=== PATIENT | male | born 1935 | race Caucasian/White ===

== ENCOUNTER 2017-04-09 07:00 | Day surgery (SDC) | payer MEDICARE, OTHER ==
[~2017-04-09 07:00] MED LIST: Lactated Ringers 1,000 ML IV SCH
[2017-04-09] MEDS ORDERED: Propofol 200 MG/20 ML SDV ONE (07:41)
[2017-04-09] MEDS ORDERED: fentaNYL 100 MCG/2 ML SDV ONE (07:41)
[2017-04-09 09:51] VITALS: BP 154/91
--- NOTE | 2017-04-09 13:28 | OR ---
PREOPERATIVE DIAGNOSIS: Screening colonoscopy. POSTOPERATIVE DIAGNOSIS: Multiple colonic polyps, sigmoid diverticulosis. PROCEDURE PROPOSED: Total flexible colonoscopy. PROCEDURE DONE: Total flexible colonoscopy with polypectomy x6. INDICATION: This is an 81-year-old gentleman, who was recommended to proceed with a screening colonoscopy. He was found to have positive FIT test about 2 years ago, and he has never had a colonoscopy before. He denies any family history of colon cancer. TECHNIQUE: The patient brought to the endoscopy suite, placed in left lateral decubitus position. He was sedated with propofol per [employer]. The flexible video colonoscope was then passed transanally and under visualization, advanced to the cecum. He was found to have multiple polyps. He had 1 in the cecum. He had 3 in the hepatic flexure area, most of them were removed by hot snare technique and 2 of them were removed with cold biopsy forceps. He then had another polyp in the descending colon, and another 1 at 40 cm in the sigmoid colon. He also had moderate sigmoid diverticulosis and the rectum was normal. The polyps were retrieved and submitted for pathologic examination. He tolerated the entire procedure well. IMPRESSION: 1. Multiple colonic polyps x6, removed. 2. Sigmoid diverticulosis. PLAN: He will be sent a letter with pathology report. I felt at his age that he likely does not need to have another colonoscopy. SCM: 04/09/2017 08:55:10 MODL: 04/09/2017 13:22:13 /[id number]
--- NOTE | 2017-07-16 11:55 | LETTER ---
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 There were no worrisome changes with any of these polyps, but due to the multitude of polyps, one could entertain the fact that you should consider having a repeat examination again in 3 years' time. This will be dependent on your health as to whether you want to proceed with that, but you likely will be sent a reminder at that time. Respectfully,
== END 2017-04-09 10:20 | disposition home or self-care (01) ==
LOC: VM.SDS 07:00
PROVIDERS: ATTEND Surgery
DX: Z12.11 Encounter for screening for malignant neoplasm of colon (principal); D12.0 Benign neoplasm of cecum; D12.3 Benign neoplasm of transverse colon; D12.6 Benign neoplasm of colon, unspecified; K57.30 Diverticulosis of large intestine without perforation or abscess without bleeding; Z79.899 Other long term (current) drug therapy; I10 Essential (primary) hypertension; N40.0 Benign prostatic hyperplasia without lower urinary tract symptoms; Z98.890 Other specified postprocedural states; Z87.891 Personal history of nicotine dependence
CPT/HCPCS: 00810; 45380; J2704; J3010; J7120; 88305

== ENCOUNTER 2023-12-02 19:32 | Inpatient (IN) | payer MEDICARE, OTHER ==
[2023-12-02] MEDS ORDERED: Acetaminophen 500 MG Tab PO ONE (19:57)
[2023-12-02 20:07] LABS: BASOPHILS PERCENT AUTO 0.1 % (0.2-1.2); HEMATOCRIT 41.7 % (40.0-52.0); HEMOGLOBIN 13.8 g/dL (14.0-18.0); IMMATURE GRAN ABSOLUTE AUTO 0.03 x10^3/uL (0.00-0.07); LYMPHOCYTES ABSOLUTE AUTO 1.3 x10^3/uL (1.0-4.8); LYMPHOCYTES PERCENT AUTO 7.2 % (25.0-50.0); MEAN CORPUSCULAR HEMOGLOBIN 30.1 pg (26.0-32.0); MEAN CORPUSCULAR HGB CONC 33.1 g/dL (32.0-36.0); MONOCYTES ABSOLUTE AUTO 0.8 x10^3/uL (0.0-0.8); MONOCYTES PERCENT AUTO 4.5 % (2.0-11.0); NEUTROPHILS ABSOLUTE AUTO 15.4 x10^3/uL (1.8-7.7); PLATELET COUNT,PLT 204 x10^3/uL (130-400); RED BLOOD CELL COUNT 4.58 x10^6/uL (4.5-6.0)
[2023-12-02] MEDS ORDERED: cefTRIAXone 1 GM Vial IVPUSH ONE (20:14)
[2023-12-02 20:43] LABS: INR 1.2 (0.9-1.1); PROTHROMBIN TIME 12.6 SEC (9.5-12.2); PTT,PARTIAL THROMBOPLSTIN TIME 29.6 SEC (23.6-33.6)
[2023-12-02 20:44] LABS: WHITE BLOOD CELL COUNT,WBC 17.5 x10^3/uL (4.0-10.0)
[2023-12-02 20:48] LABS: LACTIC ACID 2.6 mmol/L (0.4-2.0)
[2023-12-02 20:49] LABS: CORONAVIRUS COVID-19 NAA NEGATIVE (NEGATIVE); INFLUENZA A NAA NEGATIVE (NEGATIVE); INFLUENZA B NAA NEGATIVE (NEGATIVE); RESPIRATORY SYNCYTIAL VIR NAA NEGATIVE (NEGATIVE)
[2023-12-02] MEDS ORDERED: Sodium Chloride 0.9% 1,000 ML IV ONE (20:50)
[2023-12-02 20:52] LABS: A/G RATIO 0.72; ALANINE AMINOTRANSFERASE,ALT 20 U/L (16-63); ALBUMIN 3.1 g/dL (3.4-5.0); ALKALINE PHOSPHATASE 89 U/L (46-116); ASPARTATE AMNIOTRANSFERASE,AST 30 U/L (15-37); BLOOD UREA NITROGEN,BUN 34 mg/dL (7-18); C-REACTIVE PROTEIN 12.08 mg/dL (<=0.50); CALCIUM 8.9 mg/dL (8.5-10.1); CARBON DIOXIDE,CO2 25 mmol/L (21-32); CHLORIDE,CL 101 mmol/L (98-107); CREATININE 1.9 mg/dL (0.70-1.30); GLUCOSE RANDOM 131 mg/dL (70-99); POTASSIUM,K 3.7 mmol/L (3.5-5.1); PRO B-TYPE NATRIUR PEPT,BNPPRO 14090 pg/mL (<=450); PROTEIN TOTAL,TP 7.4 g/dL (6.4-8.2); SODIUM,NA 140 mmol/L (136-145)
[2023-12-02 20:54] LABS: APPEARANCE,URINE CLOUDY (CLEAR); BILIRUBIN,URINE NEGATIVE (NEGATIVE); COLOR,URINE YELLOW (YELLOW); GLUCOSE,URINE NEGATIVE (NEGATIVE); KETONES,URINE NEGATIVE (NEGATIVE); LEUKOCYTE ESTERASE,URINE LARGE (NEGATIVE); NITRITE,URINE POSITIVE (NEGATIVE); OCCULT BLOOD,URINE MODERATE (NEGATIVE); PH,URINE 6.5 (5.0-8.0); PROTEIN,URINE 100 mg/dL (NEGATIVE)
[2023-12-02 20:56] LABS: ANION GAP 17.7 mmol/L (5-15); ESTIMATED GFR 34 mL/min (>=60)
[2023-12-02 21:02] LABS: BACTERIA,URINE MANY /HPF (NOT SEEN); MUCUS,URINE NOT SEEN /LPF (NOT SEEN); SQUAMOUS EPITHELIAL CELLS,UR NOT SEEN /HPF (NOT SEEN); WBC,URINE >100 /HPF (NOT SEEN)
[2023-12-02] MEDS ORDERED: Iopamidol 755 Mg/ML 100 ML Bottle IVPUSH ONE (22:25)
[2023-12-02] MEDS: Sodium Chloride 0.9% 1,000 ML IV SCH (23:50)
[2023-12-03] MEDS ORDERED: Acetaminophen 325 MG Tab PO PRN (03:00)
[2023-12-03 06:53] LABS: BASOPHILS PERCENT AUTO 0.2 % (0.2-1.2); EOSINOPHILS PERCENT AUTO 0.1 % (0.0-4.0); HEMATOCRIT 41.2 % (40.0-52.0); HEMOGLOBIN 13.2 g/dL (14.0-18.0); IMMATURE GRAN ABSOLUTE AUTO 0.02 x10^3/uL (0.00-0.07); LYMPHOCYTES PERCENT AUTO 8.9 % (25.0-50.0); MEAN CORPUSCULAR VOLUME 93.6 fL (78.0-93.0); MONOCYTES ABSOLUTE AUTO 0.4 x10^3/uL (0.0-0.8); MONOCYTES PERCENT AUTO 3.8 % (2.0-11.0); NEUTROPHILS ABSOLUTE AUTO 9.8 x10^3/uL (1.8-7.7); NEUTROPHILS PERCENT AUTO 86.8 % (50.0-80.0); PLATELET COUNT,PLT 167 x10^3/uL (130-400); WHITE BLOOD CELL COUNT,WBC 11.3 x10^3/uL (4.0-10.0)
[2023-12-03 07:14] LABS: A/G RATIO 0.66; ALBUMIN 2.5 g/dL (3.4-5.0); CALCIUM 8.5 mg/dL (8.5-10.1); CREATININE 1.6 mg/dL (0.70-1.30); EST CRCL DRUG DOSING (CG) 27.76 mL/min; POTASSIUM,K 3.4 mmol/L (3.5-5.1); PROTEIN TOTAL,TP 6.3 g/dL (6.4-8.2)
[2023-12-03 07:15] LABS: ANION GAP 13.4 mmol/L (5-15)
[2023-12-03] MEDS ORDERED: Ondansetron 4 MG Tab.DIS PO PRN (08:05)
[2023-12-03] MEDS: Metoprolol Succinate 50 MG Tab.ER PO SCH (08:44)
[2023-12-03] MEDS: Lisinopril 5 MG Tab PO SCH (08:45)
[2023-12-03] MEDS: Aspirin 81 MG Tab.EC PO SCH (08:45)
[2023-12-03] MEDS: Dorzolamide/Timolol 2%-0.5% Ophth Soln 10 ML Bottle EYEBOTH SCH ×2 (08:46→20:15)
[2023-12-03] MEDS: Furosemide 80 MG Tab PO SCH (08:46)
[2023-12-03] MEDS: Sodium Chloride 0.9% 1,000 ML IV SCH ×2 (09:51→21:55)
[2023-12-03] MEDS ORDERED: Non-Formulary Medication 1 Each (Ergocalciferol (Vitamin D2) [Vitamin D2] 50 MCG Capsule) PO SCH (10:00)
[2023-12-03] MEDS ORDERED: Enoxaparin 40 MG/0.4 ML Syringe SUBCUT SCH (11:30)
[2023-12-03] MEDS: Enoxaparin 40 MG/0.4 ML Syringe SUBCUT SCH ×2 (11:57→19:14)
[2023-12-03] MEDS ORDERED: Potassium Chloride 20 MEQ Tab.ER PO ONE (13:11)
[2023-12-03] MEDS ORDERED: VANCOmycin 2 GM/400 ML 400 ML IV ONE (16:45)
[2023-12-03] MEDS ORDERED: cefTRIAXone 1 GM Vial IVPUSH SCH (20:00)
[2023-12-03] MEDS: Enoxaparin 30 MG/0.3 ML Syringe SUBCUT SCH (20:15)
[2023-12-03] MEDS: Latanoprost 0.005% Ophth Soln 2.5 ML Bottle EYEBOTH SCH (20:19)
[2023-12-04 06:56] LABS: BASOPHILS PERCENT AUTO 0.1 % (0.2-1.2); EOSINOPHILS ABSOLUTE AUTO 0.2 x10^3/uL (0.0-0.5); EOSINOPHILS PERCENT AUTO 2.3 % (0.0-4.0); HEMATOCRIT 40.4 % (40.0-52.0); HEMOGLOBIN 12.9 g/dL (14.0-18.0); IMMATURE GRAN ABSOLUTE AUTO 0.01 x10^3/uL (0.00-0.07); LYMPHOCYTES ABSOLUTE AUTO 1.2 x10^3/uL (1.0-4.8); LYMPHOCYTES PERCENT AUTO 16.9 % (25.0-50.0); MEAN CORPUSCULAR HEMOGLOBIN 29.6 pg (26.0-32.0); MEAN CORPUSCULAR HGB CONC 31.9 g/dL (32.0-36.0); MEAN CORPUSCULAR VOLUME 92.7 fL (78.0-93.0); MONOCYTES ABSOLUTE AUTO 0.6 x10^3/uL (0.0-0.8); MONOCYTES PERCENT AUTO 8.7 % (2.0-11.0); NEUTROPHILS ABSOLUTE AUTO 5.3 x10^3/uL (1.8-7.7); NEUTROPHILS PERCENT AUTO 71.9 % (50.0-80.0); PLATELET COUNT,PLT 180 x10^3/uL (130-400); RED BLOOD CELL COUNT 4.36 x10^6/uL (4.5-6.0); WHITE BLOOD CELL COUNT,WBC 7.4 x10^3/uL (4.0-10.0)
[2023-12-04 07:17] LABS: A/G RATIO 0.63; ALBUMIN 2.4 g/dL (3.4-5.0); BILIRUBIN TOTAL 0.9 mg/dL (0.2-1.0); CALCIUM 8.2 mg/dL (8.5-10.1); CREATININE 1.4 mg/dL (0.70-1.30); EST CRCL DRUG DOSING (CG) 31.73 mL/min; POTASSIUM,K 3.6 mmol/L (3.5-5.1); PROTEIN TOTAL,TP 6.2 g/dL (6.4-8.2)
[2023-12-04 07:20] LABS: ANION GAP 15.6 mmol/L (5-15)
[2023-12-04] MEDS: Sodium Chloride 0.9% 1,000 ML IV SCH (07:33)
[2023-12-04] MEDS: Aspirin 81 MG Tab.EC PO SCH (09:01)
[2023-12-04] MEDS: Lisinopril 5 MG Tab PO SCH (09:03)
[2023-12-04] MEDS: Furosemide 80 MG Tab PO SCH (09:05)
[2023-12-04] MEDS: Metoprolol Succinate 50 MG Tab.ER PO SCH (09:05)
[2023-12-04] MEDS: Dorzolamide/Timolol 2%-0.5% Ophth Soln 10 ML Bottle EYEBOTH SCH ×2 (09:08→21:30)
[2023-12-04] MEDS: Enoxaparin 30 MG/0.3 ML Syringe SUBCUT SCH (21:28)
[2023-12-04] MEDS: Latanoprost 0.005% Ophth Soln 2.5 ML Bottle EYEBOTH SCH (21:29)
[2023-12-05 07:02] LABS: BASOPHILS PERCENT AUTO 0.2 % (0.2-1.2); EOSINOPHILS ABSOLUTE AUTO 0.4 x10^3/uL (0.0-0.5); EOSINOPHILS PERCENT AUTO 7.3 % (0.0-4.0); HEMATOCRIT 39.7 % (40.0-52.0); HEMOGLOBIN 12.8 g/dL (14.0-18.0); IMMATURE GRAN ABSOLUTE AUTO 0.02 x10^3/uL (0.00-0.07); LYMPHOCYTES ABSOLUTE AUTO 1.2 x10^3/uL (1.0-4.8); LYMPHOCYTES PERCENT AUTO 23.6 % (25.0-50.0); MEAN CORPUSCULAR HEMOGLOBIN 29.6 pg (26.0-32.0); MEAN CORPUSCULAR HGB CONC 32.2 g/dL (32.0-36.0); MEAN CORPUSCULAR VOLUME 91.9 fL (78.0-93.0); MONOCYTES ABSOLUTE AUTO 0.5 x10^3/uL (0.0-0.8); NEUTROPHILS PERCENT AUTO 58.5 % (50.0-80.0); PLATELET COUNT,PLT 161 x10^3/uL (130-400); RED BLOOD CELL COUNT 4.32 x10^6/uL (4.5-6.0); WHITE BLOOD CELL COUNT,WBC 5.1 x10^3/uL (4.0-10.0)
[2023-12-05 07:22] LABS: A/G RATIO 0.61; ALBUMIN 2.3 g/dL (3.4-5.0); BILIRUBIN TOTAL 0.6 mg/dL (0.2-1.0); CALCIUM 8.6 mg/dL (8.5-10.1); CREATININE 1.4 mg/dL (0.70-1.30); EST CRCL DRUG DOSING (CG) 31.73 mL/min; PROTEIN TOTAL,TP 6.1 g/dL (6.4-8.2)
[2023-12-05] MEDS: Metoprolol Succinate 50 MG Tab.ER PO SCH (08:54)
[2023-12-05] MEDS: Lisinopril 5 MG Tab PO SCH (08:54)
[2023-12-05] MEDS: Aspirin 81 MG Tab.EC PO SCH (08:54)
[2023-12-05] MEDS: Furosemide 80 MG Tab PO SCH (08:54)
[2023-12-05] MEDS: Dorzolamide/Timolol 2%-0.5% Ophth Soln 10 ML Bottle EYEBOTH SCH ×2 (08:56→20:22)
[2023-12-05] MEDS: ceFAZolin 2 GM Vial IVPUSH SCH (16:50)
[2023-12-05] MEDS: Latanoprost 0.005% Ophth Soln 2.5 ML Bottle EYEBOTH SCH (20:17)
[2023-12-05] MEDS: Enoxaparin 30 MG/0.3 ML Syringe SUBCUT SCH (20:18)
[2023-12-05] MEDS: Sodium Chloride 0.9% 10 ML Syringe FLUSH PRN (20:22)
[2023-12-06] MEDS: ceFAZolin 2 GM Vial IVPUSH SCH ×3 (00:20→16:28)
[2023-12-06] MEDS: Sodium Chloride 0.9% 10 ML Syringe FLUSH PRN ×2 (00:25→08:39)
[2023-12-06 07:16] LABS: BASOPHILS PERCENT AUTO 0.2 % (0.2-1.2); EOSINOPHILS ABSOLUTE AUTO 0.4 x10^3/uL (0.0-0.5); EOSINOPHILS PERCENT AUTO 7.8 % (0.0-4.0); HEMOGLOBIN 12.4 g/dL (14.0-18.0); IMMATURE GRAN ABSOLUTE AUTO 0.02 x10^3/uL (0.00-0.07); LYMPHOCYTES ABSOLUTE AUTO 1.2 x10^3/uL (1.0-4.8); MEAN CORPUSCULAR HEMOGLOBIN 29.8 pg (26.0-32.0); MEAN CORPUSCULAR HGB CONC 32.6 g/dL (32.0-36.0); MEAN CORPUSCULAR VOLUME 91.3 fL (78.0-93.0); MONOCYTES ABSOLUTE AUTO 0.5 x10^3/uL (0.0-0.8); MONOCYTES PERCENT AUTO 10.6 % (2.0-11.0); NEUTROPHILS ABSOLUTE AUTO 2.6 x10^3/uL (1.8-7.7); PLATELET COUNT,PLT 194 x10^3/uL (130-400); RED BLOOD CELL COUNT 4.16 x10^6/uL (4.5-6.0); WHITE BLOOD CELL COUNT,WBC 4.7 x10^3/uL (4.0-10.0)
[2023-12-06 07:51] LABS: A/G RATIO 0.67; ALBUMIN 2.4 g/dL (3.4-5.0); BILIRUBIN TOTAL 0.6 mg/dL (0.2-1.0); CALCIUM 8.7 mg/dL (8.5-10.1); CREATININE 1.3 mg/dL (0.70-1.30); EST CRCL DRUG DOSING (CG) 34.17 mL/min; POTASSIUM,K 3.6 mmol/L (3.5-5.1)
[2023-12-06 07:52] LABS: ANION GAP 13.6 mmol/L (5-15)
[2023-12-06] MEDS: Aspirin 81 MG Tab.EC PO SCH (08:32)
[2023-12-06] MEDS: Furosemide 80 MG Tab PO SCH (08:32)
[2023-12-06] MEDS: Lisinopril 5 MG Tab PO SCH (08:32)
[2023-12-06] MEDS: Metoprolol Succinate 50 MG Tab.ER PO SCH (08:33)
[2023-12-06] MEDS: Dorzolamide/Timolol 2%-0.5% Ophth Soln 10 ML Bottle EYEBOTH SCH (08:35)
[2023-12-06 16:38] VITALS: BP 161/77; PULSE 61
== END 2023-12-06 17:08 | disposition swing bed (61) | DRG 871 ==
LOC: VM.ED 19:32 → VM.MS 22:27
PROVIDERS: ADMIT Physician Assistant; ATTEND Physician Assistant
DX: A40.1 Sepsis due to streptococcus, group B (principal); N39.0 Urinary tract infection, site not specified; I10 Essential (primary) hypertension; I21.4 Non-ST elevation (NSTEMI) myocardial infarction; Z20.822 Contact with and (suspected) exposure to COVID-19; I50.33 Acute on chronic diastolic (congestive) heart failure; L03.116 Cellulitis of left lower limb; I13.0 Hypertensive heart and chronic kidney disease with heart failure and stage 1 through stage 4 chronic kidney disease, or unspecified chronic kidney disease; N18.4 Chronic kidney disease, stage 4 (severe); N30.00 Acute cystitis without hematuria; E87.20 Acidosis, unspecified; Z66 Do not resuscitate; E87.6 Hypokalemia; I27.20 Pulmonary hypertension, unspecified; R65.20 Severe sepsis without septic shock; G47.33 Obstructive sleep apnea (adult) (pediatric); N40.0 Benign prostatic hyperplasia without lower urinary tract symptoms; I87.2 Venous insufficiency (chronic) (peripheral); D64.9 Anemia, unspecified; H91.90 Unspecified hearing loss, unspecified ear; E66.9 Obesity, unspecified; I87.8 Other specified disorders of veins; B95.61 Methicillin susceptible Staphylococcus aureus infection as the cause of diseases classified elsewhere; Z79.82 Long term (current) use of aspirin; Z79.899 Other long term (current) drug therapy; Z98.49 Cataract extraction status, unspecified eye; Z98.890 Other specified postprocedural states; Z87.891 Personal history of nicotine dependence; Z11.52 Encounter for screening for COVID-19
CPT/HCPCS: 0241U; 36415; 71045; 71275; 80053; 80202; 81001; 83605; 83735; 83880; 84484; 85025; 85379; 85610; 85730; 86060; 86140; 87040; 87077; 87086; 87088; 87186; 93005; 93010; 94760; 96361; 96374; 97110; 97116; 97162; 97166; 97168; 97535; 99284; 99285; A9270-GY; J0690; J0696; J1650; J3370; J3490; J7030; J7050; Q9967

== ENCOUNTER 2023-12-06 09:12 | Inpatient (IN) | payer MEDICARE, OTHER ==
[2023-12-06] MEDS ORDERED: Ondansetron 4 MG Tab.DIS PO PRN (17:02)
[2023-12-06] MEDS ORDERED: Acetaminophen 325 MG Tab PO PRN (17:02)
[2023-12-06] MEDS: Enoxaparin 30 MG/0.3 ML Syringe SUBCUT SCH (20:45)
[2023-12-06] MEDS: Dorzolamide/Timolol 2%-0.5% Ophth Soln 10 ML Bottle EYEBOTH SCH (20:47)
[2023-12-06] MEDS: Latanoprost 0.005% Ophth Soln 2.5 ML Bottle EYEBOTH SCH (20:48)
[2023-12-06] MEDS: ceFAZolin 2 GM Vial IVPUSH SCH (23:54)
[2023-12-07] MEDS: Sodium Chloride 0.9% 10 ML Syringe FLUSH PRN ×3 (00:04→23:35)
[2023-12-07] MEDS: Aspirin 81 MG Tab.EC PO SCH (08:37)
[2023-12-07] MEDS: Furosemide 80 MG Tab PO SCH (08:38)
[2023-12-07] MEDS: Metoprolol Succinate 50 MG Tab.ER PO SCH (08:38)
[2023-12-07] MEDS: Lisinopril 5 MG Tab PO SCH (08:38)
[2023-12-07] MEDS: Dorzolamide/Timolol 2%-0.5% Ophth Soln 10 ML Bottle EYEBOTH SCH ×2 (08:40→21:01)
[2023-12-07] MEDS: ceFAZolin 2 GM Vial IVPUSH SCH ×3 (08:40→23:28)
[2023-12-07] MEDS ORDERED: FLU (Fluad Quad) 2023-24(65UP)/MF59C/PF 60 MCG/0.5 ML Syringe IM ONE (09:00)
[2023-12-07] MEDS: Enoxaparin 30 MG/0.3 ML Syringe SUBCUT SCH (20:58)
[2023-12-07] MEDS: Latanoprost 0.005% Ophth Soln 2.5 ML Bottle EYEBOTH SCH (21:00)
[2023-12-08] MEDS: Lisinopril 5 MG Tab PO SCH (08:40)
[2023-12-08] MEDS: Furosemide 80 MG Tab PO SCH (08:40)
[2023-12-08] MEDS: Aspirin 81 MG Tab.EC PO SCH (08:40)
[2023-12-08] MEDS: Metoprolol Succinate 50 MG Tab.ER PO SCH (08:40)
[2023-12-08] MEDS: Dorzolamide/Timolol 2%-0.5% Ophth Soln 10 ML Bottle EYEBOTH SCH ×2 (08:41→20:50)
[2023-12-08] MEDS: ceFAZolin 2 GM Vial IVPUSH SCH ×2 (08:41→15:49)
[2023-12-08] MEDS: Sodium Chloride 0.9% 10 ML Syringe FLUSH PRN (15:50)
[2023-12-08] MEDS: Enoxaparin 30 MG/0.3 ML Syringe SUBCUT SCH (20:51)
[2023-12-08] MEDS: Latanoprost 0.005% Ophth Soln 2.5 ML Bottle EYEBOTH SCH (20:53)
[2023-12-09] MEDS: ceFAZolin 2 GM Vial IVPUSH SCH ×3 (00:10→16:43)
[2023-12-09] MEDS: Sodium Chloride 0.9% 10 ML Syringe FLUSH PRN (00:18)
[2023-12-09 07:10] LABS: BASOPHILS PERCENT AUTO 0.6 % (0.2-1.2); EOSINOPHILS ABSOLUTE AUTO 0.4 x10^3/uL (0.0-0.5); EOSINOPHILS PERCENT AUTO 6.4 % (0.0-4.0); HEMATOCRIT 38.9 % (40.0-52.0); HEMOGLOBIN 12.7 g/dL (14.0-18.0); IMMATURE GRAN ABSOLUTE AUTO 0.09 x10^3/uL (0.00-0.07); LYMPHOCYTES ABSOLUTE AUTO 1.8 x10^3/uL (1.0-4.8); LYMPHOCYTES PERCENT AUTO 26.8 % (25.0-50.0); MEAN CORPUSCULAR HEMOGLOBIN 30.7 pg (26.0-32.0); MEAN CORPUSCULAR HGB CONC 32.6 g/dL (32.0-36.0); MONOCYTES ABSOLUTE AUTO 0.6 x10^3/uL (0.0-0.8); MONOCYTES PERCENT AUTO 8.6 % (2.0-11.0); NEUTROPHILS ABSOLUTE AUTO 3.7 x10^3/uL (1.8-7.7); NEUTROPHILS PERCENT AUTO 56.2 % (50.0-80.0); PLATELET COUNT,PLT 206 x10^3/uL (130-400); RED BLOOD CELL COUNT 4.14 x10^6/uL (4.5-6.0); WHITE BLOOD CELL COUNT,WBC 6.5 x10^3/uL (4.0-10.0)
[2023-12-09 07:25] LABS: CREATININE 1.4 mg/dL (0.70-1.30); EST CRCL DRUG DOSING (CG) 31.73 mL/min; POTASSIUM,K 3.7 mmol/L (3.5-5.1)
[2023-12-09 07:26] LABS: ANION GAP 11.7 mmol/L (5-15)
[2023-12-09] MEDS: Metoprolol Succinate 50 MG Tab.ER PO SCH (08:37)
[2023-12-09] MEDS: Lisinopril 5 MG Tab PO SCH (08:37)
[2023-12-09] MEDS: Furosemide 80 MG Tab PO SCH (08:37)
[2023-12-09] MEDS: Aspirin 81 MG Tab.EC PO SCH (08:37)
[2023-12-09] MEDS: Dorzolamide/Timolol 2%-0.5% Ophth Soln 10 ML Bottle EYEBOTH SCH ×2 (08:38→20:57)
[2023-12-09] MEDS ORDERED: Ergocalciferol (Vitamin D2) 1.25 MG Cap PO SCH (10:15)
[2023-12-09] MEDS: Enoxaparin 30 MG/0.3 ML Syringe SUBCUT SCH (20:57)
[2023-12-09] MEDS: Latanoprost 0.005% Ophth Soln 2.5 ML Bottle EYEBOTH SCH (20:58)
[2023-12-10] MEDS: ceFAZolin 2 GM Vial IVPUSH SCH ×3 (00:19→16:26)
[2023-12-10] MEDS: Sodium Chloride 0.9% 10 ML Syringe FLUSH PRN (00:23)
[2023-12-10] MEDS: Metoprolol Succinate 50 MG Tab.ER PO SCH (08:50)
[2023-12-10] MEDS: Lisinopril 5 MG Tab PO SCH (08:51)
[2023-12-10] MEDS: Furosemide 80 MG Tab PO SCH (08:51)
[2023-12-10] MEDS: Aspirin 81 MG Tab.EC PO SCH (08:51)
[2023-12-10] MEDS: Dorzolamide/Timolol 2%-0.5% Ophth Soln 10 ML Bottle EYEBOTH SCH ×2 (08:53→20:14)
[2023-12-10] MEDS: Latanoprost 0.005% Ophth Soln 2.5 ML Bottle EYEBOTH SCH (20:09)
[2023-12-10] MEDS: Enoxaparin 30 MG/0.3 ML Syringe SUBCUT SCH (20:10)
[2023-12-11] MEDS: ceFAZolin 2 GM Vial IVPUSH SCH ×3 (01:30→16:05)
[2023-12-11] MEDS: Aspirin 81 MG Tab.EC PO SCH (08:58)
[2023-12-11] MEDS: Metoprolol Succinate 50 MG Tab.ER PO SCH (08:58)
[2023-12-11] MEDS: Lisinopril 5 MG Tab PO SCH (08:58)
[2023-12-11] MEDS: Furosemide 80 MG Tab PO SCH (08:58)
[2023-12-11 08:59] VITALS: PULSE 64
[2023-12-11] MEDS: Dorzolamide/Timolol 2%-0.5% Ophth Soln 10 ML Bottle EYEBOTH SCH (08:59)
[2023-12-11 18:14] VITALS: BP 143/87
== END 2023-12-11 17:30 | disposition home or self-care (01) | DRG 602 ==
LOC: VM.MS 17:08
PROVIDERS: ADMIT Internal Medicine; ATTEND Physician Assistant
PROC: 3E0234Z Introduction of Serum, Toxoid and Vaccine into Muscle, Percutaneous Approach (ICD-10-PCS; principal; 2023-12-06)
DX: L03.116 Cellulitis of left lower limb (principal); A40.1 Sepsis due to streptococcus, group B; I50.33 Acute on chronic diastolic (congestive) heart failure; I13.0 Hypertensive heart and chronic kidney disease with heart failure and stage 1 through stage 4 chronic kidney disease, or unspecified chronic kidney disease; N18.4 Chronic kidney disease, stage 4 (severe); N30.00 Acute cystitis without hematuria; Z66 Do not resuscitate; E87.6 Hypokalemia; D63.1 Anemia in chronic kidney disease; I27.20 Pulmonary hypertension, unspecified; E66.9 Obesity, unspecified; N40.0 Benign prostatic hyperplasia without lower urinary tract symptoms; G47.33 Obstructive sleep apnea (adult) (pediatric); I87.2 Venous insufficiency (chronic) (peripheral); Z68.33 Body mass index [BMI] 33.0-33.9, adult; Z23 Encounter for immunization; Z11.52 Encounter for screening for COVID-19; Z79.82 Long term (current) use of aspirin; Z79.899 Other long term (current) drug therapy; Z98.49 Cataract extraction status, unspecified eye; Z98.890 Other specified postprocedural states; Z87.891 Personal history of nicotine dependence
CPT/HCPCS: 36415; 80048; 85025; 86140; 90694; 97110-GP; 97116-GP; 97535-GO; A9270-GY; G0008; J0690; J1650; J3490

== ENCOUNTER 2025-04-12 07:06 | Inpatient (IN) | payer MEDICARE, OTHER ==
[2025-04-12 08:02] LABS: BASOPHILS PERCENT AUTO 0.1 % (0.2-1.2); HEMATOCRIT 42.1 % (40.0-52.0); HEMOGLOBIN 14.2 g/dL (14.0-18.0); IMMATURE GRAN ABSOLUTE AUTO 0.08 x10^3/uL (0.00-0.07); LYMPHOCYTES ABSOLUTE AUTO 0.6 x10^3/uL (1.0-4.8); LYMPHOCYTES PERCENT AUTO 3.8 % (25.0-50.0); MEAN CORPUSCULAR HEMOGLOBIN 30.4 pg (26.0-32.0); MEAN CORPUSCULAR HGB CONC 33.7 g/dL (32.0-36.0); MEAN CORPUSCULAR VOLUME 90.1 fL (78.0-93.0); MONOCYTES ABSOLUTE AUTO 0.7 x10^3/uL (0.0-0.8); MONOCYTES PERCENT AUTO 4.3 % (2.0-11.0); NEUTROPHILS ABSOLUTE AUTO 14.6 x10^3/uL (1.8-7.7); NEUTROPHILS PERCENT AUTO 91.3 % (50.0-80.0); PLATELET COUNT,PLT 189 x10^3/uL (130-400); RED BLOOD CELL COUNT 4.67 x10^6/uL (4.5-6.0)
[2025-04-12 08:15] LABS: A/G RATIO 0.63; ALANINE AMINOTRANSFERASE,ALT 10 U/L (16-63); ALBUMIN 2.6 g/dL (3.4-5.0); ALKALINE PHOSPHATASE 74 U/L (46-116); ANION GAP 13.5 mmol/L (5-15); ASPARTATE AMNIOTRANSFERASE,AST 21 U/L (15-37); BILIRUBIN TOTAL 2.7 mg/dL (0.2-1.0); BLOOD UREA NITROGEN,BUN 34 mg/dL (7-18); CALCIUM 8.8 mg/dL (8.5-10.1); CARBON DIOXIDE,CO2 24 mmol/L (21-32); CHLORIDE,CL 102 mmol/L (98-107); CREATININE 1.9 mg/dL (0.70-1.30); ESTIMATED GFR 33 mL/min (>=60); GLUCOSE RANDOM 120 mg/dL (70-99); POTASSIUM,K 3.5 mmol/L (3.5-5.1); PRO B-TYPE NATRIUR PEPT,BNPPRO 6288 pg/mL (<=450); PROTEIN TOTAL,TP 6.7 g/dL (6.4-8.2); SODIUM,NA 136 mmol/L (136-145)
[2025-04-12] MEDS: Sodium Chloride 0.9% 500 ML IV ONE (08:35)
[2025-04-12] MEDS: cefTRIAXone 1 GM Vial IVPUSH ONE (08:35)
[2025-04-12 09:29] LABS: CORONAVIRUS COVID-19 NAA NEGATIVE (NEGATIVE); INFLUENZA A NAA NEGATIVE (NEGATIVE); INFLUENZA B NAA NEGATIVE (NEGATIVE); RESPIRATORY SYNCYTIAL VIR NAA NEGATIVE (NEGATIVE)
[2025-04-12 09:38] LABS: APPEARANCE,URINE CLOUDY (CLEAR); BILIRUBIN,URINE NEGATIVE (NEGATIVE); COLOR,URINE YELLOW (YELLOW); GLUCOSE,URINE NEGATIVE (NEGATIVE); KETONES,URINE NEGATIVE (NEGATIVE); LEUKOCYTE ESTERASE,URINE LARGE (NEGATIVE); NITRITE,URINE NEGATIVE (NEGATIVE); OCCULT BLOOD,URINE MODERATE (NEGATIVE); PH,URINE 6.5 (5.0-8.0); PROTEIN,URINE 100 mg/dL (NEGATIVE)
[2025-04-12 09:41] LABS: BACTERIA,URINE MODERATE /HPF (NOT SEEN); HYALINE CASTS,URINE FEW; MUCUS,URINE MODERATE /LPF (NOT SEEN); RBC,URINE 30-40 /HPF (NOT SEEN); SQUAMOUS EPITHELIAL CELLS,UR NOT SEEN /HPF (NOT SEEN); WBC,URINE >100 /HPF (NOT SEEN)
[2025-04-12] MEDS: Sodium Chloride 0.9% 1,000 ML IV SCH (11:22)
[2025-04-12] MEDS: Acetaminophen 325 MG Tab PO PRN (19:00)
[2025-04-12] MEDS: Apixaban 2.5 MG Tab PO SCH (21:04)
[2025-04-13 07:33] LABS: A/G RATIO 0.55; ALBUMIN 2.1 g/dL (3.4-5.0); BILIRUBIN TOTAL 1.2 mg/dL (0.2-1.0); CREATININE 1.5 mg/dL (0.70-1.30); EST CRCL DRUG DOSING (CG) 29.04 mL/min; POTASSIUM,K 3.5 mmol/L (3.5-5.1); PROTEIN TOTAL,TP 5.9 g/dL (6.4-8.2)
[2025-04-13 07:34] LABS: BASOPHILS PERCENT AUTO 0.2 % (0.2-1.2); EOSINOPHILS PERCENT AUTO 0.2 % (0.0-4.0); HEMATOCRIT 41.6 % (40.0-52.0); HEMOGLOBIN 14.2 g/dL (14.0-18.0); IMMATURE GRAN ABSOLUTE AUTO 0.02 x10^3/uL (0.00-0.07); LYMPHOCYTES ABSOLUTE AUTO 0.9 x10^3/uL (1.0-4.8); LYMPHOCYTES PERCENT AUTO 7.4 % (25.0-50.0); MEAN CORPUSCULAR HEMOGLOBIN 30.8 pg (26.0-32.0); MEAN CORPUSCULAR HGB CONC 34.1 g/dL (32.0-36.0); MEAN CORPUSCULAR VOLUME 90.2 fL (78.0-93.0); MONOCYTES ABSOLUTE AUTO 0.6 x10^3/uL (0.0-0.8); MONOCYTES PERCENT AUTO 5.2 % (2.0-11.0); NEUTROPHILS ABSOLUTE AUTO 10.1 x10^3/uL (1.8-7.7); NEUTROPHILS PERCENT AUTO 86.8 % (50.0-80.0); PLATELET COUNT,PLT 163 x10^3/uL (130-400); RED BLOOD CELL COUNT 4.61 x10^6/uL (4.5-6.0); WHITE BLOOD CELL COUNT,WBC 11.6 x10^3/uL (4.0-10.0)
[2025-04-13 07:37] LABS: CALCIUM 8.2 mg/dL (8.5-10.1)
[2025-04-13 07:39] LABS: ANION GAP 12.5 mmol/L (5-15)
[2025-04-13] MEDS: Furosemide 40 MG Tab PO SCH (08:13)
[2025-04-13] MEDS: Calcitriol 0.25 MCG Cap PO SCH (08:13)
[2025-04-13] MEDS: Metoprolol Succinate 50 MG Tab.ER PO SCH (08:13)
[2025-04-13] MEDS: cefTRIAXone 1 GM Vial IVPUSH SCH (08:13)
[2025-04-13] MEDS: cefTRIAXone 1 GM Vial IVPUSH ONE (08:49)
[2025-04-14 09:07] LABS: BASOPHILS PERCENT AUTO 0.1 % (0.2-1.2); EOSINOPHILS ABSOLUTE AUTO 0.1 x10^3/uL (0.0-0.5); EOSINOPHILS PERCENT AUTO 1.3 % (0.0-4.0); HEMATOCRIT 43.4 % (40.0-52.0); HEMOGLOBIN 14.5 g/dL (14.0-18.0); IMMATURE GRAN ABSOLUTE AUTO 0.03 x10^3/uL (0.00-0.07); LYMPHOCYTES PERCENT AUTO 11.7 % (25.0-50.0); MEAN CORPUSCULAR HEMOGLOBIN 30.1 pg (26.0-32.0); MEAN CORPUSCULAR HGB CONC 33.4 g/dL (32.0-36.0); MONOCYTES ABSOLUTE AUTO 0.7 x10^3/uL (0.0-0.8); MONOCYTES PERCENT AUTO 8.4 % (2.0-11.0); NEUTROPHILS ABSOLUTE AUTO 6.9 x10^3/uL (1.8-7.7); NEUTROPHILS PERCENT AUTO 78.2 % (50.0-80.0); PLATELET COUNT,PLT 179 x10^3/uL (130-400); RED BLOOD CELL COUNT 4.82 x10^6/uL (4.5-6.0); WHITE BLOOD CELL COUNT,WBC 8.8 x10^3/uL (4.0-10.0)
[2025-04-14] MEDS: Metoprolol Succinate 50 MG Tab.ER PO SCH (09:09)
[2025-04-14] MEDS: cefTRIAXone 2 GM Vial IVPUSH SCH (09:10)
[2025-04-14 09:28] LABS: A/G RATIO 0.55; ALBUMIN 2.2 g/dL (3.4-5.0); BILIRUBIN TOTAL 0.9 mg/dL (0.2-1.0); CALCIUM 8.4 mg/dL (8.5-10.1); CREATININE 1.6 mg/dL (0.70-1.30); EST CRCL DRUG DOSING (CG) 27.23 mL/min; POTASSIUM,K 3.9 mmol/L (3.5-5.1); PROTEIN TOTAL,TP 6.2 g/dL (6.4-8.2)
[2025-04-14 09:29] LABS: ANION GAP 11.9 mmol/L (5-15)
[2025-04-14 09:32] LABS: C-REACTIVE PROTEIN 14.58 mg/dL (<=0.50); MAGNESIUM 2.2 mg/dL (1.8-2.4)
[2025-04-14] MEDS: Iopamidol 612 MG/ML 100 ML Bottle IVPUSH ONE (11:34)
[2025-04-14] MEDS ORDERED: Mineral Oil/Petrolatum,White Crm 454 GM Jar TOP SCH (21:00)
[2025-04-15 06:57] LABS: BASOPHILS PERCENT AUTO 0.2 % (0.2-1.2); EOSINOPHILS ABSOLUTE AUTO 0.1 x10^3/uL (0.0-0.5); EOSINOPHILS PERCENT AUTO 1.1 % (0.0-4.0); HEMATOCRIT 44.6 % (40.0-52.0); HEMOGLOBIN 14.9 g/dL (14.0-18.0); IMMATURE GRAN ABSOLUTE AUTO 0.09 x10^3/uL (0.00-0.07); LYMPHOCYTES ABSOLUTE AUTO 1.3 x10^3/uL (1.0-4.8); LYMPHOCYTES PERCENT AUTO 14.3 % (25.0-50.0); MEAN CORPUSCULAR HGB CONC 33.4 g/dL (32.0-36.0); MEAN CORPUSCULAR VOLUME 89.7 fL (78.0-93.0); MONOCYTES ABSOLUTE AUTO 0.8 x10^3/uL (0.0-0.8); MONOCYTES PERCENT AUTO 8.3 % (2.0-11.0); NEUTROPHILS ABSOLUTE AUTO 7.1 x10^3/uL (1.8-7.7); NEUTROPHILS PERCENT AUTO 75.1 % (50.0-80.0); PLATELET COUNT,PLT 207 x10^3/uL (130-400); RED BLOOD CELL COUNT 4.97 x10^6/uL (4.5-6.0); WHITE BLOOD CELL COUNT,WBC 9.4 x10^3/uL (4.0-10.0)
[2025-04-15 07:09] LABS: CALCIUM 8.6 mg/dL (8.5-10.1); CREATININE 1.4 mg/dL (0.70-1.30); EST CRCL DRUG DOSING (CG) 31.12 mL/min
[2025-04-15] MEDS: MINERAL OIL TOP SCH (09:00)
[2025-04-15] MEDS: PETROLATUM TOP SCH (09:00)
[2025-04-15] MEDS: Acetaminophen 500 MG Tab PO SCH (09:50)
[2025-04-15] MEDS: Gabapentin 100 MG Cap PO SCH (22:12)
[2025-04-15] MEDS: Lidocaine 4% Patch TOP SCH (22:12)
[2025-04-15] MEDS: Diltiazem IR 60 MG Tab PO SCH (22:12)
[2025-04-16 11:59] VITALS: BP 134/80; PULSE 77
== END 2025-04-16 12:27 | disposition swing bed (61) | DRG 872 ==
LOC: VM.ED 07:06 → VM.MS 08:42
PROVIDERS: ADMIT Nurse Practitioner Family; ATTEND Nurse Practitioner Family
DX: A40.1 Sepsis due to streptococcus, group B (principal); R53.1 Weakness; I11.0 Hypertensive heart disease with heart failure; I50.9 Heart failure, unspecified; N30.00 Acute cystitis without hematuria; I13.0 Hypertensive heart and chronic kidney disease with heart failure and stage 1 through stage 4 chronic kidney disease, or unspecified chronic kidney disease; I50.32 Chronic diastolic (congestive) heart failure; N17.9 Acute kidney failure, unspecified; Z66 Do not resuscitate; H91.90 Unspecified hearing loss, unspecified ear; N40.0 Benign prostatic hyperplasia without lower urinary tract symptoms; I48.91 Unspecified atrial fibrillation; M54.9 Dorsalgia, unspecified; G89.29 Other chronic pain; M47.816 Spondylosis without myelopathy or radiculopathy, lumbar region; M17.9 Osteoarthritis of knee, unspecified; E66.9 Obesity, unspecified; G47.33 Obstructive sleep apnea (adult) (pediatric); I87.2 Venous insufficiency (chronic) (peripheral); N18.32 Chronic kidney disease, stage 3b; I27.20 Pulmonary hypertension, unspecified; N32.3 Diverticulum of bladder; R41.0 Disorientation, unspecified; Z86.16 Personal history of COVID-19; Z87.891 Personal history of nicotine dependence; Z79.82 Long term (current) use of aspirin; Z98.49 Cataract extraction status, unspecified eye; Z98.890 Other specified postprocedural states; Z79.899 Other long term (current) drug therapy; Z90.79 Acquired absence of other genital organ(s); Z68.33 Body mass index [BMI] 33.0-33.9, adult
CPT/HCPCS: 0241U; 36415; 51702; 51798; 71045; 71260; 74177; 80048; 80053; 81001; 83605; 83735; 83880; 84484; 85025; 86140; 87040; 87077; 87086; 87088; 87147; 87186; 93005; 93010; 96374; 97110; 97116; 97161; 97165; 97530; 97535; 99284; 99285; 87184; 94660; A9270-GY; J0696; J7030; Q3014; Q9967

== ENCOUNTER 2025-04-16 11:29 | Inpatient (IN) | payer MEDICARE, OTHER ==
[2025-04-16] MEDS: Diltiazem IR 60 MG Tab PO SCH (20:58)
[2025-04-16] MEDS: Gabapentin 100 MG Cap PO SCH (20:58)
[2025-04-16] MEDS: Acetaminophen 500 MG Tab PO SCH (20:59)
[2025-04-16] MEDS: Apixaban 2.5 MG Tab PO SCH (20:59)
[2025-04-16] MEDS: Mineral Oil/White Petrolatum Crm 113 GM Jar TOP SCH (21:00)
[2025-04-17] MEDS: Lidocaine 4% Patch TOP SCH (09:11)
[2025-04-17] MEDS: Furosemide 40 MG Tab PO SCH (09:12)
[2025-04-17] MEDS: Metoprolol Succinate 50 MG Tab.ER PO SCH (09:12)
[2025-04-17] MEDS: Calcitriol 0.25 MCG Cap PO SCH (09:12)
[2025-04-17] MEDS: cefTRIAXone 2 GM Vial IVPUSH SCH (09:13)
[2025-04-17] MEDS: Acetaminophen 325 MG Tab PO PRN (14:24)
[2025-04-20 07:08] LABS: BASOPHILS PERCENT AUTO 0.3 % (0.2-1.2); EOSINOPHILS ABSOLUTE AUTO 0.2 x10^3/uL (0.0-0.5); EOSINOPHILS PERCENT AUTO 3.4 % (0.0-4.0); HEMATOCRIT 42.4 % (40.0-52.0); HEMOGLOBIN 13.7 g/dL (14.0-18.0); LYMPHOCYTES ABSOLUTE AUTO 1.1 x10^3/uL (1.0-4.8); LYMPHOCYTES PERCENT AUTO 17.2 % (25.0-50.0); MEAN CORPUSCULAR HEMOGLOBIN 29.4 pg (26.0-32.0); MEAN CORPUSCULAR HGB CONC 32.3 g/dL (32.0-36.0); MONOCYTES ABSOLUTE AUTO 0.4 x10^3/uL (0.0-0.8); MONOCYTES PERCENT AUTO 6.5 % (2.0-11.0); NEUTROPHILS ABSOLUTE AUTO 4.6 x10^3/uL (1.8-7.7); NEUTROPHILS PERCENT AUTO 71.1 % (50.0-80.0); PLATELET COUNT,PLT 320 x10^3/uL (130-400); RED BLOOD CELL COUNT 4.66 x10^6/uL (4.5-6.0); WHITE BLOOD CELL COUNT,WBC 6.5 x10^3/uL (4.0-10.0)
[2025-04-20 07:35] LABS: A/G RATIO 0.55; ALBUMIN 2.2 g/dL (3.4-5.0); BILIRUBIN TOTAL 0.6 mg/dL (0.2-1.0); CALCIUM 8.9 mg/dL (8.5-10.1); CREATININE 1.3 mg/dL (0.70-1.30); EST CRCL DRUG DOSING (CG) 33.46 mL/min; PROTEIN TOTAL,TP 6.2 g/dL (6.4-8.2)
[2025-04-21] MEDS ORDERED: Gadoteridol 279.3 MG/ML 20 ML SDV ONE (13:21)
[2025-04-23] MEDS: Amoxicillin 500 MG Cap PO SCH (06:04)
[2025-04-27 18:24] LABS: APPEARANCE,URINE SLIGHTLY CLOUDY (CLEAR); BILIRUBIN,URINE NEGATIVE (NEGATIVE); COLOR,URINE DARK YELLOW (YELLOW); GLUCOSE,URINE NEGATIVE (NEGATIVE); KETONES,URINE NEGATIVE (NEGATIVE); LEUKOCYTE ESTERASE,URINE TRACE (NEGATIVE); NITRITE,URINE NEGATIVE (NEGATIVE); OCCULT BLOOD,URINE MODERATE (NEGATIVE); PROTEIN,URINE TRACE mg/dL (NEGATIVE); UROBILINOGEN,URINE 0.2 EU/dL (0.2)
[2025-04-27 18:33] LABS: BACTERIA,URINE OCCASIONAL /HPF (NOT SEEN); MUCUS,URINE OCCASIONAL /LPF (NOT SEEN); RBC,URINE 30-40 /HPF (NOT SEEN); SQUAMOUS EPITHELIAL CELLS,UR NOT SEEN /HPF (NOT SEEN)
[2025-04-28] MEDS: Miconazole 2% Top Powder 45 GM Container TOP SCH (11:39)
[2025-04-29] MEDS ORDERED: Magnesium Hydroxide 400 MG/5 ML Susp 30 ML Cup PO PRN (16:03)
[2025-04-30 06:57] LABS: BASOPHILS ABSOLUTE AUTO 0.1 x10^3/uL (0.0-0.2); BASOPHILS PERCENT AUTO 1.1 % (0.2-1.2); EOSINOPHILS ABSOLUTE AUTO 0.2 x10^3/uL (0.0-0.5); EOSINOPHILS PERCENT AUTO 4.8 % (0.0-4.0); HEMATOCRIT 40.5 % (40.0-52.0); HEMOGLOBIN 13.2 g/dL (14.0-18.0); IMMATURE GRAN ABSOLUTE AUTO 0.01 x10^3/uL (0.00-0.07); LYMPHOCYTES ABSOLUTE AUTO 1.2 x10^3/uL (1.0-4.8); LYMPHOCYTES PERCENT AUTO 26.8 % (25.0-50.0); MEAN CORPUSCULAR HEMOGLOBIN 29.9 pg (26.0-32.0); MEAN CORPUSCULAR HGB CONC 32.6 g/dL (32.0-36.0); MEAN CORPUSCULAR VOLUME 91.8 fL (78.0-93.0); MONOCYTES ABSOLUTE AUTO 0.5 x10^3/uL (0.0-0.8); MONOCYTES PERCENT AUTO 11.2 % (2.0-11.0); NEUTROPHILS ABSOLUTE AUTO 2.6 x10^3/uL (1.8-7.7); NEUTROPHILS PERCENT AUTO 55.9 % (50.0-80.0); PLATELET COUNT,PLT 287 x10^3/uL (130-400); RED BLOOD CELL COUNT 4.41 x10^6/uL (4.5-6.0); WHITE BLOOD CELL COUNT,WBC 4.6 x10^3/uL (4.0-10.0)
[2025-04-30 07:45] LABS: ANION GAP 12.5 mmol/L (5-15); CALCIUM 9.2 mg/dL (8.5-10.1); CREATININE 1.4 mg/dL (0.70-1.30); EST CRCL DRUG DOSING (CG) 31.07 mL/min; POTASSIUM,K 3.5 mmol/L (3.5-5.1)
[2025-04-30] MEDS ORDERED: Gabapentin 100 MG Cap PO PRN (08:22)
[2025-04-30 13:45] LABS: APPEARANCE,URINE CLEAR (CLEAR); BILIRUBIN,URINE NEGATIVE (NEGATIVE); COLOR,URINE YELLOW (YELLOW); GLUCOSE,URINE NEGATIVE (NEGATIVE); KETONES,URINE NEGATIVE (NEGATIVE); LEUKOCYTE ESTERASE,URINE NEGATIVE (NEGATIVE); NITRITE,URINE NEGATIVE (NEGATIVE); OCCULT BLOOD,URINE MODERATE (NEGATIVE); PH,URINE 6.5 (5.0-8.0); PROTEIN,URINE NEGATIVE (NEGATIVE); UROBILINOGEN,URINE 0.2 EU/dL (0.2)
[2025-04-30 14:04] LABS: RBC,URINE >100 /HPF (NOT SEEN)
[2025-04-30 14:05] LABS: HYALINE CASTS,URINE RARE; SQUAMOUS EPITHELIAL CELLS,UR FEW /HPF (NOT SEEN); WBC,URINE 0-5 /HPF (NOT SEEN)
[2025-04-30] MEDS: Finasteride 5 MG Tab PO SCH (17:21)
[2025-05-03] MEDS ORDERED: Ondansetron 4 MG Tab.DIS PO PRN (10:53)
[2025-05-05 11:57] VITALS: BP 150/98; PULSE 62
== END 2025-05-05 11:40 | DRG 872 ==
LOC: VM.MS 11:37
PROVIDERS: ADMIT Internal Medicine; ATTEND Internal Medicine
DX: A40.1 Sepsis due to streptococcus, group B (principal); I50.32 Chronic diastolic (congestive) heart failure; I13.0 Hypertensive heart and chronic kidney disease with heart failure and stage 1 through stage 4 chronic kidney disease, or unspecified chronic kidney disease; I48.91 Unspecified atrial fibrillation; M54.9 Dorsalgia, unspecified; G89.29 Other chronic pain; G47.33 Obstructive sleep apnea (adult) (pediatric); R53.81 Other malaise; N18.9 Chronic kidney disease, unspecified; I87.8 Other specified disorders of veins; K30 Functional dyspepsia; G31.84 Mild cognitive impairment of uncertain or unknown etiology; Z79.899 Other long term (current) drug therapy
CPT/HCPCS: 36415; 51798; 72158; 80048; 80053; 81001; 85025; 85652; 86140; 87086; 94660; 97110-GP; 97116-GP; 97530-GO; 97535-GO; A9270-GY; A9579; J0696

== ENCOUNTER 2025-06-13 09:15 | Inpatient (IN) | payer MEDICARE, OTHER ==
[2025-06-13] MEDS ORDERED: Sodium Chloride 0.9% 10 ML Syringe FLUSH PRN (09:22)
[2025-06-13 09:33] LABS: BASOPHILS ABSOLUTE AUTO 0.0 x10^3/uL (0.0-0.2); BASOPHILS PERCENT AUTO 0.2 % (0.2-1.2); EOSINOPHILS ABSOLUTE AUTO 0.0 x10^3/uL (0.0-0.5); EOSINOPHILS PERCENT AUTO 0.5 % (0.0-4.0); IMMATURE GRAN ABSOLUTE AUTO 0.01 x10^3/uL (0.00-0.07); IMMATURE GRAN PERCENT AUTO 0.10 % (0.00-0.43); LYMPHOCYTES ABSOLUTE AUTO 1.9 x10^3/uL (1.0-4.8); LYMPHOCYTES PERCENT AUTO 21.4 % (25.0-50.0); MONOCYTES ABSOLUTE AUTO 0.6 x10^3/uL (0.0-0.8); MONOCYTES PERCENT AUTO 6.6 % (2.0-11.0); NEUTROPHILS ABSOLUTE AUTO 6.2 x10^3/uL (1.8-7.7); NEUTROPHILS PERCENT AUTO 71.2 % (50.0-80.0); PLATELET COUNT,PLT 100 x10^3/uL (130-400); RED BLOOD CELL COUNT 5.27 x10^6/uL (4.5-6.0)
[2025-06-13 09:57] LABS: WHITE BLOOD CELL COUNT,WBC 8.6 x10^3/uL (4.0-10.0)
[2025-06-13 09:58] LABS: A/G RATIO 0.77; ALANINE AMINOTRANSFERASE,ALT 16 U/L (16-63); ASPARTATE AMNIOTRANSFERASE,AST 22 U/L (15-37); BILIRUBIN TOTAL 3.4 mg/dL (0.2-1.0); BLOOD UREA NITROGEN,BUN 63 mg/dL (7-18); CARBON DIOXIDE,CO2 30 mmol/L (21-32); CHLORIDE,CL 103 mmol/L (98-107); CREATININE 2.0 mg/dL (0.70-1.30); GLUCOSE RANDOM 123 mg/dL (70-99); POTASSIUM,K 4.9 mmol/L (3.5-5.1); PROTEIN TOTAL,TP 6.2 g/dL (6.4-8.2); SODIUM,NA 139 mmol/L (136-145)
[2025-06-13 10:00] LABS: ESTIMATED GFR 31 mL/min (>=60); LACTIC ACID 3.4 mmol/L (0.4-2.0)
[2025-06-13 10:51] LABS: INR 1.2 (0.9-1.1)
[2025-06-13 12:37] LABS: APPEARANCE,URINE TURBID (CLEAR); GLUCOSE,URINE NEGATIVE (NEGATIVE); OCCULT BLOOD,URINE SMALL (NEGATIVE)
[2025-06-13 12:45] LABS: SQUAMOUS EPITHELIAL CELLS,UR FEW /HPF (NOT SEEN)
[2025-06-13] MEDS: Dorzolamide/Timolol 2%-0.5% Ophth Soln 10 ML Bottle EYEBOTH SCH (20:48)
[2025-06-13] MEDS: SUMAtriptan 6 MG/0.5 ML SDV SUBCUT ONE (22:00)
[2025-06-14 06:43] LABS: PLATELET COUNT,PLT 90.0 x10^3/uL (130-400); RED BLOOD CELL COUNT 4.98 x10^6/uL (4.5-6.0); WHITE BLOOD CELL COUNT,WBC 7.0 x10^3/uL (4.0-10.0)
[2025-06-14 07:15] LABS: A/G RATIO 0.67; ALANINE AMINOTRANSFERASE,ALT 14.0 U/L (16-63); ASPARTATE AMNIOTRANSFERASE,AST 23.0 U/L (15-37); BILIRUBIN TOTAL 1.5 mg/dL (0.2-1.0); BLOOD UREA NITROGEN,BUN 60.0 mg/dL (7-18); CARBON DIOXIDE,CO2 30.0 mmol/L (21-32); CHLORIDE,CL 105.0 mmol/L (98-107); CREATININE 1.9 mg/dL (0.70-1.30); EST CRCL DRUG DOSING (CG) 22.93 mL/min; GLUCOSE RANDOM 97.0 mg/dL (70-99); POTASSIUM,K 4.7 mmol/L (3.5-5.1); PROTEIN TOTAL,TP 6.0 g/dL (6.4-8.2); SODIUM,NA 141.0 mmol/L (136-145)
[2025-06-14 07:17] LABS: ESTIMATED GFR 33.0 mL/min (>=60)
[2025-06-14] MEDS: Miconazole 2% Top Powder 45 GM Container TOP SCH (13:04)
[2025-06-15 07:10] LABS: PLATELET COUNT,PLT 74.0 x10^3/uL (130-400); RED BLOOD CELL COUNT 5.04 x10^6/uL (4.5-6.0); WHITE BLOOD CELL COUNT,WBC 6.1 x10^3/uL (4.0-10.0)
[2025-06-15 07:32] LABS: A/G RATIO 0.61; ALANINE AMINOTRANSFERASE,ALT 14.0 U/L (16-63); ASPARTATE AMNIOTRANSFERASE,AST 19.0 U/L (15-37); BILIRUBIN TOTAL 1.3 mg/dL (0.2-1.0); BLOOD UREA NITROGEN,BUN 54.0 mg/dL (7-18); CARBON DIOXIDE,CO2 30.0 mmol/L (21-32); CHLORIDE,CL 104.0 mmol/L (98-107); CREATININE 1.7 mg/dL (0.70-1.30); EST CRCL DRUG DOSING (CG) 25.63 mL/min; ESTIMATED GFR 38.0 mL/min (>=60); GLUCOSE RANDOM 97.0 mg/dL (70-99); POTASSIUM,K 4.4 mmol/L (3.5-5.1); PROTEIN TOTAL,TP 5.8 g/dL (6.4-8.2); SODIUM,NA 142.0 mmol/L (136-145)
[2025-06-15] MEDS: D-Mannose 500 MG Cap PO SCH (11:16)
[2025-06-16 06:42] LABS: BASOPHILS ABSOLUTE AUTO 0.0 x10^3/uL (0.0-0.2); BASOPHILS PERCENT AUTO 0.3 % (0.2-1.2); EOSINOPHILS ABSOLUTE AUTO 0.1 x10^3/uL (0.0-0.5); EOSINOPHILS PERCENT AUTO 1.8 % (0.0-4.0); IMMATURE GRAN ABSOLUTE AUTO 0.01 x10^3/uL (0.00-0.07); IMMATURE GRAN PERCENT AUTO 0.20 % (0.00-0.43); LYMPHOCYTES ABSOLUTE AUTO 1.6 x10^3/uL (1.0-4.8); LYMPHOCYTES PERCENT AUTO 26.3 % (25.0-50.0); MONOCYTES ABSOLUTE AUTO 0.4 x10^3/uL (0.0-0.8); MONOCYTES PERCENT AUTO 6.8 % (2.0-11.0); NEUTROPHILS ABSOLUTE AUTO 4.0 x10^3/uL (1.8-7.7); NEUTROPHILS PERCENT AUTO 64.6 % (50.0-80.0); PLATELET COUNT,PLT 64 x10^3/uL (130-400); RED BLOOD CELL COUNT 5.22 x10^6/uL (4.5-6.0); WHITE BLOOD CELL COUNT,WBC 6.2 x10^3/uL (4.0-10.0)
[2025-06-16 06:57] LABS: BLOOD UREA NITROGEN,BUN 53.0 mg/dL (7-18); CARBON DIOXIDE,CO2 31.0 mmol/L (21-32); CHLORIDE,CL 104.0 mmol/L (98-107); CREATININE 1.9 mg/dL (0.70-1.30); EST CRCL DRUG DOSING (CG) 22.93 mL/min; GLUCOSE RANDOM 114.0 mg/dL (70-99); POTASSIUM,K 4.4 mmol/L (3.5-5.1); SODIUM,NA 142.0 mmol/L (136-145)
[2025-06-16 06:59] LABS: ESTIMATED GFR 33.0 mL/min (>=60)
[2025-06-17 07:00] LABS: BASOPHILS ABSOLUTE AUTO 0.0 x10^3/uL (0.0-0.2); BASOPHILS PERCENT AUTO 0.6 % (0.2-1.2); EOSINOPHILS ABSOLUTE AUTO 0.2 x10^3/uL (0.0-0.5); EOSINOPHILS PERCENT AUTO 2.4 % (0.0-4.0); IMMATURE GRAN ABSOLUTE AUTO 0.01 x10^3/uL (0.00-0.07); IMMATURE GRAN PERCENT AUTO 0.20 % (0.00-0.43); LYMPHOCYTES ABSOLUTE AUTO 1.7 x10^3/uL (1.0-4.8); LYMPHOCYTES PERCENT AUTO 27.9 % (25.0-50.0); MONOCYTES ABSOLUTE AUTO 0.5 x10^3/uL (0.0-0.8); MONOCYTES PERCENT AUTO 7.6 % (2.0-11.0); NEUTROPHILS ABSOLUTE AUTO 3.8 x10^3/uL (1.8-7.7); NEUTROPHILS PERCENT AUTO 61.3 % (50.0-80.0); PLATELET COUNT,PLT 63 x10^3/uL (130-400); RED BLOOD CELL COUNT 5.37 x10^6/uL (4.5-6.0); WHITE BLOOD CELL COUNT,WBC 6.2 x10^3/uL (4.0-10.0)
[2025-06-17 07:18] LABS: A/G RATIO 0.71; ALANINE AMINOTRANSFERASE,ALT 16.0 U/L (16-63); ASPARTATE AMNIOTRANSFERASE,AST 26.0 U/L (15-37); BILIRUBIN TOTAL 1.3 mg/dL (0.2-1.0); BLOOD UREA NITROGEN,BUN 58.0 mg/dL (7-18); CARBON DIOXIDE,CO2 26.0 mmol/L (21-32); CHLORIDE,CL 103.0 mmol/L (98-107); CREATININE 2.2 mg/dL (0.70-1.30); EST CRCL DRUG DOSING (CG) 19.8 mL/min; GLUCOSE RANDOM 100.0 mg/dL (70-99); POTASSIUM,K 4.6 mmol/L (3.5-5.1); PROTEIN TOTAL,TP 5.8 g/dL (6.4-8.2); SODIUM,NA 141.0 mmol/L (136-145)
[2025-06-17 07:19] LABS: ESTIMATED GFR 28.0 mL/min (>=60)
[2025-06-17] MEDS ORDERED: Ondansetron 4 MG Tab.DIS PO PRN (08:54)
[2025-06-18 07:17] LABS: BASOPHILS ABSOLUTE AUTO 0.0 x10^3/uL (0.0-0.2); BASOPHILS PERCENT AUTO 0.7 % (0.2-1.2); EOSINOPHILS ABSOLUTE AUTO 0.2 x10^3/uL (0.0-0.5); EOSINOPHILS PERCENT AUTO 4.0 % (0.0-4.0); IMMATURE GRAN ABSOLUTE AUTO 0.02 x10^3/uL (0.00-0.07); IMMATURE GRAN PERCENT AUTO 0.40 % (0.00-0.43); LYMPHOCYTES ABSOLUTE AUTO 1.7 x10^3/uL (1.0-4.8); LYMPHOCYTES PERCENT AUTO 30.9 % (25.0-50.0); MONOCYTES ABSOLUTE AUTO 0.5 x10^3/uL (0.0-0.8); MONOCYTES PERCENT AUTO 8.3 % (2.0-11.0); NEUTROPHILS ABSOLUTE AUTO 3.1 x10^3/uL (1.8-7.7); NEUTROPHILS PERCENT AUTO 55.7 % (50.0-80.0); PLATELET COUNT,PLT 66 x10^3/uL (130-400); RED BLOOD CELL COUNT 4.99 x10^6/uL (4.5-6.0); WHITE BLOOD CELL COUNT,WBC 5.6 x10^3/uL (4.0-10.0)
[2025-06-18 07:32] LABS: BLOOD UREA NITROGEN,BUN 48.0 mg/dL (7-18); CARBON DIOXIDE,CO2 26.0 mmol/L (21-32); CHLORIDE,CL 105.0 mmol/L (98-107); CREATININE 1.7 mg/dL (0.70-1.30); EST CRCL DRUG DOSING (CG) 25.63 mL/min; GLUCOSE RANDOM 95.0 mg/dL (70-99); POTASSIUM,K 4.4 mmol/L (3.5-5.1); SODIUM,NA 141.0 mmol/L (136-145)
[2025-06-18 07:40] LABS: ESTIMATED GFR 38.0 mL/min (>=60)
[2025-06-18 09:53] VITALS: BP 117/73
[2025-06-18 09:54] VITALS: PULSE 76
[2025-06-18] MEDS: Pantoprazole 20 MG Tab, Delayed Release PO SCH (10:16)
== END 2025-06-18 10:40 | DRG 813 ==
LOC: VM.ED 09:15 → VM.MS 11:33
PROVIDERS: ADMIT Nurse Practitioner Family; ATTEND Internal Medicine
PROC: 3E03329 Introduction of Other Anti-infective into Peripheral Vein, Percutaneous Approach (ICD-10-PCS; 2025-06-13)
PROC: 5A09357 Assistance with Respiratory Ventilation, Less than 24 Consecutive Hours, Continuous Positive Airway Pressure (ICD-10-PCS; principal; 2025-06-17)
DX: D69.2 Other nonthrombocytopenic purpura (principal); I50.33 Acute on chronic diastolic (congestive) heart failure; N18.9 Chronic kidney disease, unspecified; I13.0 Hypertensive heart and chronic kidney disease with heart failure and stage 1 through stage 4 chronic kidney disease, or unspecified chronic kidney disease; E87.20 Acidosis, unspecified; N17.9 Acute kidney failure, unspecified; N39.0 Urinary tract infection, site not specified; Z68.30 Body mass index [BMI] 30.0-30.9, adult; N18.4 Chronic kidney disease, stage 4 (severe); L03.119 Cellulitis of unspecified part of limb; E86.0 Dehydration; K29.70 Gastritis, unspecified, without bleeding; H91.93 Unspecified hearing loss, bilateral; D69.59 Other secondary thrombocytopenia; M47.816 Spondylosis without myelopathy or radiculopathy, lumbar region; G25.81 Restless legs syndrome; H40.9 Unspecified glaucoma; I87.8 Other specified disorders of veins; R53.81 Other malaise; B96.89 Other specified bacterial agents as the cause of diseases classified elsewhere; T36.8X5A Adverse effect of other systemic antibiotics, initial encounter; I73.9 Peripheral vascular disease, unspecified; Z66 Do not resuscitate; I27.20 Pulmonary hypertension, unspecified; I48.91 Unspecified atrial fibrillation; E66.9 Obesity, unspecified; N40.0 Benign prostatic hyperplasia without lower urinary tract symptoms; G47.33 Obstructive sleep apnea (adult) (pediatric); H54.7 Unspecified visual loss; M54.9 Dorsalgia, unspecified; G89.29 Other chronic pain; Z86.16 Personal history of COVID-19; Z98.49 Cataract extraction status, unspecified eye; Z98.890 Other specified postprocedural states; Z79.899 Other long term (current) drug therapy; Y92.89 Other specified places as the place of occurrence of the external cause; Z79.01 Long term (current) use of anticoagulants; Z90.79 Acquired absence of other genital organ(s); Z87.891 Personal history of nicotine dependence
CPT/HCPCS: 36415; 51798; 80048; 80053; 81001; 83605; 83735; 83880; 84484; 85025; 85027; 85610; 85730; 86140; 87040; 87070; 87086; 87088; 87186; 93010; 96374; 97110-GP; 97116-GP; 97162-GP; 97165-GO; 97530-GP; 97535-GO; 99284; 99284-25; A9270-GY; J0696; J7030

== ENCOUNTER 2025-08-25 19:14 | Inpatient (IN) | payer MEDICARE, OTHER ==
[2025-08-25 19:31] LABS: BASOPHILS ABSOLUTE AUTO 0.0 x10^3/uL (0.0-0.2); BASOPHILS PERCENT AUTO 0.2 % (0.2-1.2); EOSINOPHILS ABSOLUTE AUTO 0.0 x10^3/uL (0.0-0.5); EOSINOPHILS PERCENT AUTO 0.6 % (0.0-4.0); IMMATURE GRAN ABSOLUTE AUTO 0.02 x10^3/uL (0.00-0.07); IMMATURE GRAN PERCENT AUTO 0.40 % (0.00-0.43); LYMPHOCYTES ABSOLUTE AUTO 1.9 x10^3/uL (1.0-4.8); LYMPHOCYTES PERCENT AUTO 35.7 % (25.0-50.0); MONOCYTES ABSOLUTE AUTO 0.8 x10^3/uL (0.0-0.8); MONOCYTES PERCENT AUTO 13.9 % (2.0-11.0); NEUTROPHILS ABSOLUTE AUTO 2.7 x10^3/uL (1.8-7.7); NEUTROPHILS PERCENT AUTO 49.2 % (50.0-80.0); PLATELET COUNT,PLT 237 x10^3/uL (130-400); RED BLOOD CELL COUNT 5.61 x10^6/uL (4.5-6.0); WHITE BLOOD CELL COUNT,WBC 5.4 x10^3/uL (4.0-10.0)
[2025-08-25 19:53] LABS: A/G RATIO 0.68; ALANINE AMINOTRANSFERASE,ALT 22 U/L (16-63); ASPARTATE AMNIOTRANSFERASE,AST 23 U/L (15-37); BILIRUBIN TOTAL 3.9 mg/dL (0.2-1.0); CARBON DIOXIDE,CO2 27 mmol/L (21-32); CHLORIDE,CL 98 mmol/L (98-107); GLUCOSE RANDOM 125 mg/dL (70-99); POTASSIUM,K 4.9 mmol/L (3.5-5.1); PROTEIN TOTAL,TP 6.4 g/dL (6.4-8.2); SODIUM,NA 134 mmol/L (136-145)
[2025-08-25 19:55] LABS: BLOOD UREA NITROGEN,BUN 93 mg/dL (7-18); ESTIMATED GFR 18 mL/min (>=60)
[2025-08-25 19:56] LABS: CREATININE 3.2 mg/dL (0.70-1.30)
[2025-08-25] MEDS ORDERED: Sodium Chloride 0.9% 10 ML Syringe FLUSH PRN (20:07)
[2025-08-26] MEDS ORDERED: Ondansetron 4 MG Tab.DIS PO PRN (01:25)
[2025-08-26 06:48] LABS: BASOPHILS ABSOLUTE AUTO 0.0 x10^3/uL (0.0-0.2); BASOPHILS PERCENT AUTO 0.0 % (0.2-1.2); EOSINOPHILS ABSOLUTE AUTO 0.0 x10^3/uL (0.0-0.5); EOSINOPHILS PERCENT AUTO 0.9 % (0.0-4.0); IMMATURE GRAN ABSOLUTE AUTO 0.02 x10^3/uL (0.00-0.07); IMMATURE GRAN PERCENT AUTO 0.40 % (0.00-0.43); LYMPHOCYTES ABSOLUTE AUTO 1.9 x10^3/uL (1.0-4.8); LYMPHOCYTES PERCENT AUTO 40.6 % (25.0-50.0); MONOCYTES ABSOLUTE AUTO 0.7 x10^3/uL (0.0-0.8); MONOCYTES PERCENT AUTO 14.6 % (2.0-11.0); NEUTROPHILS ABSOLUTE AUTO 2.0 x10^3/uL (1.8-7.7); NEUTROPHILS PERCENT AUTO 43.5 % (50.0-80.0); PLATELET COUNT,PLT 218 x10^3/uL (130-400); RED BLOOD CELL COUNT 5.12 x10^6/uL (4.5-6.0); WHITE BLOOD CELL COUNT,WBC 4.6 x10^3/uL (4.0-10.0)
[2025-08-26 07:00] LABS: CARBON DIOXIDE,CO2 26.0 mmol/L (21-32); CHLORIDE,CL 103.0 mmol/L (98-107); CREATININE 2.8 mg/dL (0.70-1.30); EST CRCL DRUG DOSING (CG) 18.47 mL/min; GLUCOSE RANDOM 82.0 mg/dL (70-99); POTASSIUM,K 4.5 mmol/L (3.5-5.1); SODIUM,NA 137.0 mmol/L (136-145)
[2025-08-26 07:01] LABS: ESTIMATED GFR 21.0 mL/min (>=60)
[2025-08-26 07:02] LABS: BLOOD UREA NITROGEN,BUN 92.0 mg/dL (7-18)
[2025-08-26 08:47] LABS: HCO3 VENOUS,POC 26 mmol/L (22-29); O2 SATURATION VENOUS,POC 68 %; PCO2 VENOUS,POC 34 mmHg (41-51); PH VENOUS,POC 7.48 pH (7.32-7.43); PO2 VENOUS,POC 33 mmHg
[2025-08-26] MEDS: Dorzolamide/Timolol 2%-0.5% Ophth Soln 10 ML Bottle EYEBOTH SCH (09:39)
[2025-08-26] MEDS: Amoxicillin/Clavulanate K 500-125 MG Tab PO SCH (09:39)
[2025-08-26] MEDS: D-Mannose 500 MG Cap PO SCH (09:39)
[2025-08-27 06:46] LABS: BASOPHILS ABSOLUTE AUTO 0.0 x10^3/uL (0.0-0.2); BASOPHILS PERCENT AUTO 0.2 % (0.2-1.2); EOSINOPHILS ABSOLUTE AUTO 0.1 x10^3/uL (0.0-0.5); EOSINOPHILS PERCENT AUTO 1.5 % (0.0-4.0); IMMATURE GRAN ABSOLUTE AUTO 0.03 x10^3/uL (0.00-0.07); IMMATURE GRAN PERCENT AUTO 0.50 % (0.00-0.43); LYMPHOCYTES ABSOLUTE AUTO 1.7 x10^3/uL (1.0-4.8); LYMPHOCYTES PERCENT AUTO 28.1 % (25.0-50.0); MONOCYTES ABSOLUTE AUTO 0.6 x10^3/uL (0.0-0.8); MONOCYTES PERCENT AUTO 9.7 % (2.0-11.0); NEUTROPHILS ABSOLUTE AUTO 3.6 x10^3/uL (1.8-7.7); NEUTROPHILS PERCENT AUTO 60.0 % (50.0-80.0); RED BLOOD CELL COUNT 5.40 x10^6/uL (4.5-6.0); WHITE BLOOD CELL COUNT,WBC 6.0 x10^3/uL (4.0-10.0)
[2025-08-27 06:57] LABS: CARBON DIOXIDE,CO2 25.0 mmol/L (21-32); CHLORIDE,CL 103.0 mmol/L (98-107); CREATININE 2.6 mg/dL (0.70-1.30); EST CRCL DRUG DOSING (CG) 19.89 mL/min; GLUCOSE RANDOM 116.0 mg/dL (70-99); POTASSIUM,K 5.0 mmol/L (3.5-5.1); SODIUM,NA 136.0 mmol/L (136-145)
[2025-08-27 07:01] LABS: BLOOD UREA NITROGEN,BUN 89.0 mg/dL (7-18)
[2025-08-27 07:02] LABS: ESTIMATED GFR 23.0 mL/min (>=60)
[2025-08-27 07:11] LABS: PLATELET COUNT,PLT 215 x10^3/uL (130-400)
[2025-08-27] MEDS: Lactulose Soln 10 GM/15 ML 30 ML UD Cup PO SCH ×2 (09:26→22:05)
[2025-08-27 11:00] LABS: A/G RATIO 0.58; ALANINE AMINOTRANSFERASE,ALT 21.0 U/L (16-63); ASPARTATE AMNIOTRANSFERASE,AST 46.0 U/L (15-37); BILIRUBIN DIRECT 0.59 mg/dL (0.00-0.20); BILIRUBIN INDIRECT 1.91; BILIRUBIN TOTAL 2.5 mg/dL (0.2-1.0); PROTEIN TOTAL,TP 6.0 g/dL (6.4-8.2)
[2025-08-27] MEDS: methylPREDNISolone Sodium Succinate 40 MG/1 ML SDV IVPUSH SCH (12:49)
[2025-08-28 08:04] LABS: BASOPHILS ABSOLUTE AUTO 0.0 x10^3/uL (0.0-0.2); BASOPHILS PERCENT AUTO 0.2 % (0.2-1.2); EOSINOPHILS ABSOLUTE AUTO 0.0 x10^3/uL (0.0-0.5); EOSINOPHILS PERCENT AUTO 0.0 % (0.0-4.0); IMMATURE GRAN ABSOLUTE AUTO 0.04 x10^3/uL (0.00-0.07); IMMATURE GRAN PERCENT AUTO 0.80 % (0.00-0.43); LYMPHOCYTES ABSOLUTE AUTO 1.6 x10^3/uL (1.0-4.8); LYMPHOCYTES PERCENT AUTO 31.7 % (25.0-50.0); MONOCYTES ABSOLUTE AUTO 0.2 x10^3/uL (0.0-0.8); MONOCYTES PERCENT AUTO 4.1 % (2.0-11.0); NEUTROPHILS ABSOLUTE AUTO 3.1 x10^3/uL (1.8-7.7); NEUTROPHILS PERCENT AUTO 63.2 % (50.0-80.0); PLATELET COUNT,PLT 202 x10^3/uL (130-400); RED BLOOD CELL COUNT 5.53 x10^6/uL (4.5-6.0); WHITE BLOOD CELL COUNT,WBC 4.9 x10^3/uL (4.0-10.0)
[2025-08-28 08:36] LABS: A/G RATIO 0.53; ALANINE AMINOTRANSFERASE,ALT 18.0 U/L (16-63); ASPARTATE AMNIOTRANSFERASE,AST 20.0 U/L (15-37); BILIRUBIN TOTAL 1.9 mg/dL (0.2-1.0); CARBON DIOXIDE,CO2 20.0 mmol/L (21-32); CHLORIDE,CL 109.0 mmol/L (98-107); CREATININE 2.5 mg/dL (0.70-1.30); EST CRCL DRUG DOSING (CG) 20.68 mL/min; GLUCOSE RANDOM 116.0 mg/dL (70-99); POTASSIUM,K 4.9 mmol/L (3.5-5.1); PROTEIN TOTAL,TP 5.5 g/dL (6.4-8.2); SODIUM,NA 140.0 mmol/L (136-145)
[2025-08-28 08:39] LABS: BLOOD UREA NITROGEN,BUN 78.0 mg/dL (7-18); ESTIMATED GFR 24.0 mL/min (>=60)
[2025-08-28 20:47] LABS: APPEARANCE,URINE TURBID (CLEAR); GLUCOSE,URINE NEGATIVE (NEGATIVE); OCCULT BLOOD,URINE LARGE (NEGATIVE)
[2025-08-28 20:55] LABS: SQUAMOUS EPITHELIAL CELLS,UR NOT SEEN /HPF (NOT SEEN)
[2025-08-29 09:03] LABS: BASOPHILS ABSOLUTE AUTO 0.0 x10^3/uL (0.0-0.2); BASOPHILS PERCENT AUTO 0.1 % (0.2-1.2); EOSINOPHILS ABSOLUTE AUTO 0.0 x10^3/uL (0.0-0.5); EOSINOPHILS PERCENT AUTO 0.0 % (0.0-4.0); IMMATURE GRAN ABSOLUTE AUTO 0.05 x10^3/uL (0.00-0.07); IMMATURE GRAN PERCENT AUTO 0.70 % (0.00-0.43); LYMPHOCYTES ABSOLUTE AUTO 2.0 x10^3/uL (1.0-4.8); LYMPHOCYTES PERCENT AUTO 28.3 % (25.0-50.0); MONOCYTES ABSOLUTE AUTO 0.5 x10^3/uL (0.0-0.8); MONOCYTES PERCENT AUTO 7.4 % (2.0-11.0); NEUTROPHILS ABSOLUTE AUTO 4.5 x10^3/uL (1.8-7.7); NEUTROPHILS PERCENT AUTO 63.5 % (50.0-80.0); PLATELET COUNT,PLT 208 x10^3/uL (130-400); RED BLOOD CELL COUNT 5.67 x10^6/uL (4.5-6.0)
[2025-08-29 09:04] LABS: WHITE BLOOD CELL COUNT,WBC 7.2 x10^3/uL (4.0-10.0)
[2025-08-29 09:23] LABS: A/G RATIO 0.6; ALANINE AMINOTRANSFERASE,ALT 24.0 U/L (16-63); ASPARTATE AMNIOTRANSFERASE,AST 26.0 U/L (15-37); BILIRUBIN TOTAL 1.6 mg/dL (0.2-1.0); CARBON DIOXIDE,CO2 22.0 mmol/L (21-32); CHLORIDE,CL 105.0 mmol/L (98-107); CREATININE 2.4 mg/dL (0.70-1.30); EST CRCL DRUG DOSING (CG) 21.55 mL/min; GLUCOSE RANDOM 115.0 mg/dL (70-99); POTASSIUM,K 5.3 mmol/L (3.5-5.1); PROTEIN TOTAL,TP 6.4 g/dL (6.4-8.2); SODIUM,NA 137.0 mmol/L (136-145)
[2025-08-29 09:26] LABS: ESTIMATED GFR 25.0 mL/min (>=60)
[2025-08-29 09:41] LABS: BLOOD UREA NITROGEN,BUN 76.0 mg/dL (7-18)
[2025-08-29] MEDS ORDERED: Lactulose Soln 10 GM/15 ML 30 ML UD Cup PO PRN (11:03)
[2025-08-29] MEDS: Amoxicillin/Clavulanate K 500-125 MG Tab PO SCH (20:31)
[2025-08-30 07:12] LABS: BASOPHILS ABSOLUTE AUTO 0.0 x10^3/uL (0.0-0.2); BASOPHILS PERCENT AUTO 0.0 % (0.2-1.2); EOSINOPHILS ABSOLUTE AUTO 0.0 x10^3/uL (0.0-0.5); EOSINOPHILS PERCENT AUTO 0.3 % (0.0-4.0); IMMATURE GRAN ABSOLUTE AUTO 0.12 x10^3/uL (0.00-0.07); IMMATURE GRAN PERCENT AUTO 1.60 % (0.00-0.43); LYMPHOCYTES ABSOLUTE AUTO 2.4 x10^3/uL (1.0-4.8); LYMPHOCYTES PERCENT AUTO 31.9 % (25.0-50.0); MONOCYTES ABSOLUTE AUTO 0.8 x10^3/uL (0.0-0.8); MONOCYTES PERCENT AUTO 10.8 % (2.0-11.0); NEUTROPHILS ABSOLUTE AUTO 4.3 x10^3/uL (1.8-7.7); NEUTROPHILS PERCENT AUTO 55.4 % (50.0-80.0); RED BLOOD CELL COUNT 5.47 x10^6/uL (4.5-6.0); WHITE BLOOD CELL COUNT,WBC 7.7 x10^3/uL (4.0-10.0)
[2025-08-30 07:37] LABS: A/G RATIO 0.65; ALANINE AMINOTRANSFERASE,ALT 52.0 U/L (16-63); ASPARTATE AMNIOTRANSFERASE,AST 48.0 U/L (15-37); BILIRUBIN TOTAL 1.5 mg/dL (0.2-1.0); CARBON DIOXIDE,CO2 24.0 mmol/L (21-32); CHLORIDE,CL 108.0 mmol/L (98-107); CREATININE 2.2 mg/dL (0.70-1.30); EST CRCL DRUG DOSING (CG) 23.5 mL/min; GLUCOSE RANDOM 93.0 mg/dL (70-99); POTASSIUM,K 5.1 mmol/L (3.5-5.1); PROTEIN TOTAL,TP 6.1 g/dL (6.4-8.2); SODIUM,NA 138.0 mmol/L (136-145)
[2025-08-30 07:38] LABS: ESTIMATED GFR 28.0 mL/min (>=60)
[2025-08-30 07:39] LABS: BLOOD UREA NITROGEN,BUN 74.0 mg/dL (7-18)
[2025-08-30 07:45] LABS: PLATELET COUNT,PLT 223 x10^3/uL (130-400)
[2025-08-30 11:16] VITALS: BP 158/80; PULSE 80
== END 2025-08-30 11:30 | DRG 682 ==
LOC: VM.ED 19:14 → VM.MS 20:17
PROVIDERS: ADMIT Internal Medicine; ATTEND Internal Medicine
DX: N17.9 Acute kidney failure, unspecified (principal); N30.00 Acute cystitis without hematuria; G93.41 Metabolic encephalopathy; E87.1 Hypo-osmolality and hyponatremia; I13.0 Hypertensive heart and chronic kidney disease with heart failure and stage 1 through stage 4 chronic kidney disease, or unspecified chronic kidney disease; I50.9 Heart failure, unspecified; I50.32 Chronic diastolic (congestive) heart failure; N39.0 Urinary tract infection, site not specified; Z66 Do not resuscitate; Z51.5 Encounter for palliative care; E86.0 Dehydration; K76.82 Hepatic encephalopathy; N40.0 Benign prostatic hyperplasia without lower urinary tract symptoms; I48.91 Unspecified atrial fibrillation; N18.4 Chronic kidney disease, stage 4 (severe); G47.33 Obstructive sleep apnea (adult) (pediatric); H91.90 Unspecified hearing loss, unspecified ear; N18.9 Chronic kidney disease, unspecified; G47.30 Sleep apnea, unspecified; M54.9 Dorsalgia, unspecified; G89.29 Other chronic pain; Z86.16 Personal history of COVID-19; Z98.890 Other specified postprocedural states; Z79.899 Other long term (current) drug therapy; Z98.49 Cataract extraction status, unspecified eye; Z79.01 Long term (current) use of anticoagulants
CPT/HCPCS: 36415; 51702; 51798; 70450; 71045; 80048; 80053; 80076; 81001; 82140; 82550; 82803; 82947; 83605; 84550; 85025; 87070; 97162-GP; 97166-GO; 99223-GT; 99232-GT; 99284; 99285; A9270-GY; J0295; J2919; J7030; J7042; Q3014